=== PATIENT | male | born 1990 | race Caucasian/White ===

== ENCOUNTER 2022-12-03 07:54 | Day surgery (SDC) | payer OTHER, SELFPAY ==
[2022-12-03 08:31] VITALS: BMI 39.2
[2022-12-03 08:47] VITALS: BP 140/89; PULSE 58; RESP 16; TEMP 36.1; O2SAT 96
[2022-12-03] MEDS: Lactated Ringers 1,000 ML 50 ML IVCONT (09:14)
--- NOTE | 2022-12-03 09:48 | P.CONAN_ITS ---
HPI - Anesthesia Eval Consult details Narrative: for endo for barreailyn [facility] Past Medical History Medical History Asthma GERD (gastroesophageal reflux disease) PTSD (post-traumatic stress disorder) Family History Family history of problems with anesthesia: No Surgical History Surgical History History of Zonia fundoplication Hx of colonoscopy Hx of esophagogastroduodenoscopy Hx of wisdom tooth extraction History of Problems with Anesthesia: No Social History Social History Patient Tobacco Use Status: Never used Tobacco Use of substances other than those prescribed or required for medical reasons: No Are you DNR?: No Advance Directives: No Advance Directives Information Provided: Yes Meds Allergies Allergy/AdvReac Type Severity Reaction Status Date / Time hydrocodone Allergy Unknown Verified 12/03/22 08:28 Active Medications: Current Medications Lactated Ringer's (Lr) 1,000 mls @ 50 mls/hr IVCONT .Q20H LISETH Last Admin: 12/03/22 09:14 Dose: 50 mls/hr Home Medications Medication Instructions Recorded Confirmed Last Taken Type famotidine 20 mg tablet 20 mg PO BEDTIME 12/02/22 12/03/22 Unknown History pantoprazole 20 mg tablet,delayed 20 mg PO DAILY 12/02/22 12/03/22 Unknown History release albuterol sulfate 90 mcg/actuation 2 puff inhalation Q4-6H PRN 12/03/22 12/03/22 Unknown History aerosol inhaler Shortness Of Breath Or Wheezing melatonin 10 mg tablet 10 mg PO BEDTIME PRN Insomnia 12/03/22 12/03/22 Unknown History valerian root 450 mg capsule 450 mg PO DAILY PRN Anxiety 12/03/22 12/03/22 Unknown History Exam Exam Date and Time: December 03, 202248 Height,Weight and Vital Signs: Height 5 ft 7 in Weight 113.398 kg Last Vital Signs Temp 96.9 F 12/03/22 08:47 Pulse 58 12/03/22 08:47 Resp 16 12/03/22 08:47 BP 140/89 H 12/03/22 08:47 Pulse Ox 96 12/03/22 08:47 O2 Del Method Room Air 12/03/22 08:47 Airway Mallampati Class: II TM Dist: >3cm Neck ROM: Full Heart: rrr Lungs: cta Assessment and Plan Assessment Anesthesia Assessment: Anesthesia Plan Discussed and Chart Reviewed (morbid obesity, TRINITY not treated , no follow up , recent albuterol use, ? depression ) Final Anesthetic Review Family History of Problems with Anesthesia: No History of Problems with Anesthesia: No NPO: No ASA Class: II Final Preanesthetic Review: No Changes in Pt Med Stat, Meds/Allgs Chart Reviewed, Consent Obtained/Reviewed and Anes Risks/Benef Reviewed Patient Risk: Intermediate Procedure Risk: Low Anesthetic Plan Anesthetic Plan: MAC: Disposition: Standard PACU
--- NOTE | 2022-12-03 10:15 | MHC.SHP ---
Pre-Procedural Eval Section A Date of Service: 12/03/22 Section B Chief Complaint: gerd Details of Present Illness: see H*P no changes Relevant Family History (Specify if Yes): No Relevant Social History: None Present Medications: see Short Stay Collaborative assessment Medical History: No relevant PMH History of Previous Operations: No relevant previous surgery Allergies: Allergies Allergy/AdvReac Type Severity Reaction Status Date / Time hydrocodone Allergy Unknown Verified 12/03/22 08:28 Review of Systems Sugical H&P ROS: Negative: Constitution, Cardiovascular, Respiratory, Neurological, Psychiatric, Hem-Onc, Allergic/Immunologic, Gastrointestinal, Genitourinary, Musculoskeletal, Integumentary, Endocrine and Eyes/Ears/Nose/Throat Exam Surgical H&P Exam: Normal: HEENT, Normal: Heart, Normal: Lungs, Normal: Extremities, Normal: Abdomen, Normal: Skin and Normal: Neurological Plan Diagnosis/Plan: Unchanged I have reviewed the history and physical and performed a pertinent physical examination on my patient. No changes have occurred unless specified. Time Spent With Patient Time: Total time managing care of this patient today ____ minutes.
--- NOTE | 2022-12-03 10:37 | PM.OP ---
Brief Operative Note Date of Service: 12/03/22 Pre-op diagnosis: gerd Procedure: EGD Surgeon: Obed Carlson Anesthesia: MAC Was an Conductor/Engineer used for this Procedure?: No Estimated blood loss (mL): 5 Pathology: other Condition: stable Disposition: PACU
--- NOTE | 2022-12-03 10:38 | PM.OP ---
Brief Operative Note Date of Service: 12/03/22 Surgeon: Obed Carlson Was an Police Magistrate used for this Procedure?: No
[2022-12-03 11:00] VITALS: BP 128/82; PULSE 72; RESP 17; TEMP 36.4; O2SAT 97
--- NOTE | 2022-12-03 11:09 | OP_ITS ---
DATE OF SERVICE: 12/03/2022 SURGEON: Obed Carlson MD INDICATIONS: Gastroesophageal reflux disease. PREOPERATIVE DIAGNOSIS: POSTOPERATIVE DIAGNOSIS: PROCEDURE PERFORMED: Upper endoscopy with biopsy. ESTIMATED BLOOD LOSS: COMPLICATIONS: ANESTHESIA: Monitored anesthesia care. ASSISTANTS: SPECIMENS: DESCRIPTION OF PROCEDURE: A history and physical were performed. The risks and benefits of the procedure were explained to the patient. Informed consent was obtained. The patient was placed in left lateral decubitus position. The Olympus video gastroscope was introduced into the esophagus, stomach, and duodenum. Examination was performed. The scope was removed. He tolerated the procedure well with an episode of desaturation, which was managed by anesthesia. He was returned to the recovery room in stable condition. FINDINGS: Esophagus: There was mild distal esophagitis with an irregular EG junction. This was biopsied. There was a 5 cm hiatal hernia. Stomach: Stomach showed surgical changes from his prior fundoplication surgery. Antral biopsies were obtained to evaluate for H pylori. Duodenum: The bulb and 2nd portion were normal. IMPRESSION: 1. Gastroesophageal reflux disease with esophagitis. 2. Hiatal hernia. RECOMMENDATIONS: Follow up biopsy results. MD LUCAS Watson/CIPRIANOL / [id number]
[2022-12-03 11:15] VITALS: BP 138/87; PULSE 71; RESP 19; O2SAT 96
[2022-12-03 11:30] VITALS: BP 132/81; PULSE 60; RESP 24; TEMP 36.8; O2SAT 98
== END 2022-12-03 12:13 | disposition home or self-care (01) ==
PROVIDERS: PCP Physician Assistant; Visit Provider Internal Medicine Gastroenterology
PROC: 0DJ08ZZ Inspection of Upper Intestinal Tract, Via Natural or Artificial Opening Endoscopic (ICD-10-PCS; CPT 43235; principal; 2022-12-03 09:30)
DX: K21.00 Gastro-esophageal reflux disease with esophagitis, without bleeding (principal); Z98.890 Other specified postprocedural states; K44.9 Diaphragmatic hernia without obstruction or gangrene; J45.909 Unspecified asthma, uncomplicated; F43.10 Post-traumatic stress disorder, unspecified; Z79.899 Other long term (current) drug therapy; Z88.8 Allergy status to other drugs, medicaments and biological substances
CPT/HCPCS: 43239; 88305; 88342; J1100

== ENCOUNTER 2024-11-16 06:17 | Day surgery (SDC) | payer OTHER, SELFPAY ==
[2024-11-12 13:14] VITALS: BMI 38.0
--- OUTSIDE RECORDS SUMMARY | 2024-11-15 14:55 | XMS_ITS | Patient Health Record ---
Author Organization [facility] Address [address] [place] [address] Care Team Providers Care Mice Raiser Name Role Phone Abiodun Myrick Primary Care Provider Un available Obed Carlson Jr Unavailable [phone] Allergies Allergen (clinical drug ingredient) Drug/Non Drug Allergy documented on EMR Reaction Allergy Type Onset Date Status hydrocodone Hydrocodone Unknown Drug Allergy Act jarrett Reason For Referral Referring Provider First Name Abiodun Referring Provider Last Name Magda Referring Provider Speciality Internal M edicine Referred Organization [facility] Referred Provider Obed Carlson Jr Referred Address [address] [facility],[address],[place], [place],[address], Referred Provider Specialty Gastroentero logy Referral Priority Routine Medications Medication SIG (Take, Route, Frequency, Duration) Notes Start Date End Date Status Famotidine 20 MG 1 tablet at bedtime as needed Orally Once a day for 30 day(s) Active Pantoprazole Sodium 20 MG 1 tablet Orall y Once a day for 30 day(s) Active Albuterol Active Immunizations Vaccine Route Administration Date Status Comme nts Influenza Unknown 01/22/2022 Administered Social History Tobacco Use: Social History Observation Description Date Details (start date - stop date) Never Smoker NA - NA Tobacco Use/Smoking Question Answer Notes Patient is a nonsmoker Alcohol Screen Question Answer Notes Did you have a drink contain ing alcohol in the past year? Yes How often did you have a dri nk containing alcohol in the past year? Monthly or less (1 point) How many drinks did you have on a typical day when you were drinking in the past year? 1 or 2 drinks (0 point) How often did you have 6 or more drinks on one occasion in the past year? Never (0 point) Points 1 Interpretation Negative Problems Problem Type SNOMED Code ICD Code Onset Dates Problem Status W/U Status Risk Notes Problem Esophageal reflu x (K21.9) Active confirmed Problem 70690362 Hiatal hernia (K44.9) Active confirmed Problem 390722230 Gastroesophageal reflux disease, unspecified whether esophagitis present (K21.9) Active confirmed Problem 957730441 Gastroesophageal reflux disease with esophagitis without hemorrhage (K21.00) Active confirmed Vital Signs Blood pressure diastolic 00 mm Hg 03/25/2024 Height 68 in 03/25/2024 Blood pressure systolic 00 mm Hg 03/25/2024 Weight 250 lbs 03/25/2024 BMI 38.01 kg/m2 03/25/2024 Encounters Encounter Location Date Provider Diagnosis [facility] [address] [place] [id number] 03/25/2024 Obed Carlson Jr Gastroesophageal reflux disease with esophagitis without hemorrhage K21.00 [facility] [address] [place] [phone] 12/17/2023 Obed Carlson Jr [facility] [address] [place] [phone] 09/10/2024 Obed Carlson Jr Assessments Encounter Date Diagnosis (ICD Code) Assessment Notes Treatment Notes Treatment Clinical Notes Section Notes 03/25/2024 Gastroesophageal reflux disease with esophagitis without hemorrhage (ICD-10 - K21.00) Gastroesophageal reflux disease material was printed We discussed gastroesophageal reflux disease today. We discussed diet, lifestyle modifications, and weight management. We also discussed hiatal hernias and how they can worsen reflux. We recommended he continue pantoprazole in the morning and famotidine at night. He will need followup endoscopy in November of 2024. We will review his outpatient colonoscopy reports when they are available. Plan Of Treatment Future Test Test Name Order Date UPPER GI ENDOSCOPY 10/14/2022 Next Appt Details Provider Name:Obed pedraza Jr, 11/16/2024 07:30:00 AM, [address] [place] [address] , [place], [place], [phone], Insurance Providers Payer Name Payer Address Payer Phone Subscriber Number Group Number Insured Name Patient Relationship to Insured Coverage Start Date Coverage End Date [place] [employer] [address] [place] [address] [id number] BINU ANTHONY Self - patient is the insured Medical (General) History Medical History History ICD Code PTSD Asthma Gastroesophageal reflux disease Elevated BMI Surgical History Surgery Date(Month/Year) Zonia fundoplication with subsequent re do in 2017 2015 [place] teeth extraction
[2024-11-16 06:50] VITALS: BMI 35.7
[2024-11-16 07:06] VITALS: BP 134/98; PULSE 71; RESP 16; TEMP 36.4; O2SAT 97
[2024-11-16] MEDS: Lactated Ringers 1,000 ML 80 ML IVCONT (07:18)
--- NOTE | 2024-11-16 07:26 | HO.ANESPROP2 ---
HPI - Anesthesia Eval Consult details Narrative: for EGD and colonoscopy [facility] Past Medical History Medical History GERD (gastroesophageal reflux disease) PTSD (post-traumatic stress disorder) Asthma Narrative: Snores at night, undoubtedly has sleep apnea. Family History Family history of problems with anesthesia: No Surgical History Surgical History (Updated 11/12/24 @ 13:17 by Ju Muhammad RN) Hx of colonoscopy Hx of wisdom tooth extraction Hx of esophagogastroduodenoscopy (2022) History of Zonia fundoplication History of Problems with Anesthesia: No Social History Social History Patient Tobacco Use Status: Never used Tobacco Meds Allergies Allergy/AdvReac Type Severity Reaction Status Date / Time hydrocodone Allergy Nausea Verified 11/16/24 06:48 Active Medications: Current Medications Lactated Ringer's (Lr) 1,000 mls @ 80 mls/hr IVCONT .[id number] LISETH Last Admin: 11/16/24 07:18 Dose: 80 mls/hr Home Medications ?Medication ?Instructions ?Recorded ?Confirmed ?Last Taken ?Type famotidine 20 mg tablet 20 mg PO BEDTIME 12/02/22 11/12/24 Unknown History pantoprazole 20 mg tablet,delayed 20 mg PO DAILY 12/02/22 11/12/24 Unknown History release albuterol sulfate 90 mcg/actuation 2 puff inhalation Q4-6H PRN 12/03/22 11/12/24 Unknown History aerosol inhaler Shortness Of Breath Or Wheezing melatonin 10 mg tablet 10 mg PO BEDTIME PRN Insomnia 12/03/22 12/03/22 Unknown History valerian root 450 mg capsule 450 mg PO DAILY PRN Anxiety 12/03/22 12/03/22 Unknown History Exam Height,Weight and Vital Signs: Height 5 ft 8 in Weight 106.4 kg Last Vital Signs Temp 97.6 F 11/16/24 07:06 Pulse 71 11/16/24 07:06 Resp 16 11/16/24 07:06 BP 134/98 H 11/16/24 07:06 Pulse Ox 97 11/16/24 07:06 O2 Del Method Room Air 11/16/24 07:06 Airway Mallampati Class: II TM Dist: <=3cm Neck ROM: Full Loose/Missing/Broken Teeth: No Heart: ok Lungs: ok Assessment and Plan Assessment Anesthesia Assessment: Anesthesia Plan Discussed and Chart Reviewed Final Anesthetic Review Family History of Problems with Anesthesia: No History of Problems with Anesthesia: No NPO: Yes ASA Class: III Final Preanesthetic Review: No Changes in Pt Med Stat, Meds/Allgs Chart Reviewed, Consent Obtained/Reviewed and Anes Risks/Benef Reviewed Patient Risk: Intermediate Procedure Risk: Intermediate Anesthetic Plan Anesthetic Plan: Agree w/ Assess. and Plan and TIVA Disposition: Standard PACU
--- NOTE | 2024-11-16 07:31 | P.HPSUR_ITS ---
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,anemia Details of Present Illness: see H&p no changes Relevant Family History (Specify if Yes): No Relevant Social History: None Present Medications: see Short Stay Collaborative assessment Medical History: No relevant PMH History of Previous Operations: No relevant previous surgery Allergies: Allergies Allergy/AdvReac Type Severity Reaction Status Date / Time hydrocodone Allergy Nausea Verified 11/16/24 06:48 Review of Systems Sugical H&P ROS: Negative: Constitution, Cardiovascular, Respiratory, Neurological, Psychiatric, Hem-Onc, Allergic/Immunologic, Gastrointestinal, Genitourinary, Musculoskeletal, Integumentary, Endocrine and Eyes/Ears/Nose/Thr oat Plan Diagnosis/Plan: Unchanged I have reviewed the history and physical and performed a pertinent physical examination on my patient. No changes have occurred unless specified. Time Spent With Patient Time: Total time managing care of this patient today ____ minutes.
[2024-11-16 08:20] VITALS: BP 91/54; PULSE 65; RESP 18; TEMP 36.3; O2SAT 96
[2024-11-16 08:35] VITALS: BP 109/74; PULSE 64; RESP 20; TEMP 36.3; O2SAT 97
--- NOTE | 2024-11-16 09:54 | OP_ITS ---
DATE OF SERVICE: 11/16/2024 SURGEON: Obed Carlson MD INDICATIONS: 1. Hanson esophagus. 2. Change in bowel movements. PREOPERATIVE DIAGNOSIS: POSTOPERATIVE DIAGNOSIS: PROCEDURE PERFORMED: Upper endoscopy with biopsy, colonoscopy to the terminal ileum with biopsy. ESTIMATED BLOOD LOSS: COMPLICATIONS: ANESTHESIA: ASSISTANTS: SPECIMENS: MEDICATIONS: Monitored anesthesia care. DESCRIPTION OF PROCEDURE: A history and physical was performed. The risks and benefits of the procedure were explained to the patient, and informed consent was obtained. The patient was placed in the left lateral decubitus position. The Olympus video gastroscope was introduced into the esophagus, stomach, and duodenum. Examination was performed the scope was removed. He was repositioned for colonoscopy. A digital rectal exam was performed and was found to be normal. The Olympus pediatric video colonoscope was introduced into the rectum and advanced to the cecum. The cecum was identified by transillumination, palpation, and identification of ileocecal valve. Examination was performed. The scope was removed. He tolerated both procedures well. FINDINGS: Upper the esophagus showed a 1 cm area of Hanson esophagus with associated esophagitis. There were no raised lesions or ulcerated areas. Biopsies were obtained from the EG junction and distal esophagus. Stomach: The stomach showed no evidence of masses, ulcers, or polyps. Antral biopsies were obtained. Duodenum: The bulb and 2nd portion were normal. Colonoscopy: The terminal ileum was normal. The visualized colonic mucosa was normal. The quality of the prep was good. No polyps were identified. Random sigmoid biopsies were obtained. There was mild diverticulosis involving sigmoid. IMPRESSION: 1. Hanson esophagus. 2. Normal colonoscopy. RECOMMENDATION: Follow up the biopsy results. MD LUCAS Watson/MALIHA / [id number]
== END 2024-11-16 08:53 | disposition home or self-care (01) ==
PROVIDERS: PCP Physician Assistant; Visit Provider Internal Medicine Gastroenterology
PROC: (CPT 45380; principal; 2024-11-16 07:30)
DX: R19.4 Change in bowel habit (principal); K57.30 Diverticulosis of large intestine without perforation or abscess without bleeding; K22.70 Barrett's esophagus without dysplasia; K20.80 Other esophagitis without bleeding; K44.9 Diaphragmatic hernia without obstruction or gangrene; D50.9 Iron deficiency anemia, unspecified; K21.9 Gastro-esophageal reflux disease without esophagitis; J45.909 Unspecified asthma, uncomplicated; Z79.899 Other long term (current) drug therapy
CPT/HCPCS: 45380; 43239; 88305; 88313; 88342; J2003; J2704; J3010